=== PATIENT | female | born 1960 | race Two or more races ===

== ENCOUNTER 2023-11-10 14:31 | Emergency (ER) | payer BC ==
[~2023-11-10] VITALS: Ht 154.9 cm; Wt 48.7 kg
[2023-11-10 15:26] VITALS: BP 130/96; PULSE 84; RESP 18; TEMP 98.5; O2SAT 96
[2023-11-10] MEDS ORDERED: GABA300C PO (15:48)
== END 2023-11-10 16:07 | disposition home or self-care (01) ==
LOC: ER 14:31
DX: R20.0 Anesthesia of skin (principal); K08.89 Other specified disorders of teeth and supporting structures; Z79.899 Other long term (current) drug therapy
CPT/HCPCS: 99283